=== PATIENT | female | born 1980 | race Caucasian/White ===

== ENCOUNTER 2020-03-16 06:31 | Emergency (ER) | payer OTHER ==
[~2020-03-16] VITALS: Ht 167.6 cm; Wt 67.1 kg
[2020-03-16 06:38] VITALS: Ht 167.6 cm; Wt 67.1 kg
[2020-03-16 07:29] VITALS: BP 145/88
== END 2020-03-16 07:29 | disposition home or self-care (01) ==
LOC: ED 06:31
DX: F41.9 Anxiety disorder, unspecified (principal)